=== PATIENT | male | born 1990 | race Caucasian/White ===

== ENCOUNTER 2017-01-04 08:00 | Inpatient (IN) | payer MEDICAID ==
[~2017-01-04] VITALS: Ht 167.6 cm; Wt 65.8 kg
--- NOTE | ~2017-01-04 | DS ---
Unit #: [id number] #: [id number] Patient: EDDIE ROTH [id number] [place] [address] [id number] MR#: [id number] NAME: EDDIE ROTH. ROOM: P204 Age: 26 Sex: M Admission Date: 01/04/2017 : 1990 Discharge Date: 01/05/2017 Attending Physician: Gibson Rome M.D. Primary Care Physician: Generic Doctor Not In System DISCHARGE SUMMARY REASON FOR ADMISSION The patient is a 26-year-old white male, admitted after he had presented to his mother's home intoxicated and claiming to be suicidal. HOSPITAL COURSE The patient was admitted to the [address] [place] [address] unit and upon arrival on the unit required p.r.nJasmyne Whitley given his state of agitation, thus he was not evaluated on the initial date of admission. On 01/05/2017, the patient was contrite over the events, which led to the hospitalization and stated that the alcohol was the cause of his statements of suicidality. 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 Further the patient stated that he had made arrangements to go to a psychiatric facility most likely "catch" in the next few days to initiate medication for his "personality disorder and bipolarism." He was not felt to meet criteria for involuntary hospitalization and was exhibiting no signs or symptoms of alcohol withdrawal. As per his request, discharge was ordered. FINAL DIAGNOSES Alcohol use disorder; substance-induced mood disorder. DISPOSITION ON DISCHARGE No psychotropic or other medications were ordered at the time of discharge. FOLLOWUP Followup will take place through the auspices of community mental health resources. PROGNOSIS The patient's prognosis is considered fair. Dictated by... Gibson Rome M.D. CB/aniya TD: 01/05/2017 16:04 JOB #: [id number] Unit #: [id number] #: [id number] Patient: EDDIE ROTH DISCHARGE SUMMARY Page 1 of 1 X Gibson Rome MD DISCHARGE SUMMARY
--- NOTE | ~2017-01-04 | PA ---
Unit #: [id number] #: [id number] Patient: EDDIE ROTH [id number] [facility] [address] [place] [address] [id number] MR#: [id number] NAME: EDDIE ROTH. ROOM: P204 Age: 26 Sex: M Admission Date: 01/04/2017 : 1990 Date of Assessment: 01/04/2017 Attending Physician: Gibson Rome M.D. Admitting Physician: Gibson Rome M.D. Primary Care Physician: Generic Doctor Not In System PSYCHIATRIC ASSESSMENT IDENTIFYING INFORMATION The patient is a 26-year-old white male admitted to the [address] [place] [address] Unit after he had presented to his this facility drunk and voicing suicidal ideation. CHIEF COMPLAINT None given. INFORMANT(S) Chart. Patient cannot be aroused for interview. HISTORY OF PRESENT ILLNESS The patient is a 26-year-old white male admitted after he was just brought to this facility by family members this morning. The patient had apparently shown up at his mother's house intoxicated, threatening suicide. The patient reports that this is related to relationship issues mainly as well as unemployment. The patient had become somewhat aggressive in the emergency room but was calm upon arrival on the unit. He has a history of treatment in the past on an outpatient basis and was sent to a boot camp as an adolescent. The patient has a history of polysubstance dependence including abuse of cocaine and opiates, but his most recent drug of choice has been alcohol. PAST PSYCHIATRIC HISTORY As above. PAST MEDICAL HISTORY The patient is on no current medications. MEDICATIONS None. ALLERGIES None. FAMILY HISTORY The patient had a sister who committed suicide. SOCIAL HISTORY The patient is currently in a relationship with a woman who is but has been unfaithful to him. He is drinking 15 to 16 beers a day and has a history of cocaine and opioid abuse as well as abuse of cannabis. MENTAL STATUS EXAMINATION Unit #: [id number] #: [id number] Patient: EDDIE ROTH Examination at this time reveals the patient to be a soundly sleeping white male appearing stated age. He does not arouse after multiple attempts to do so. ASSETS AND LIABILITIES The patient's assets: Supportive family. Liabilities: Ongoing substance use. DIAGNOSTIC IMPRESSION 1. Alcohol use disorder. 2. Cocaine use disorder. 3. Cannabis use disorder. 4. Opioid use disorder. 5. Dysthymic disorder. TREATMENT PLAN The patient remains hospitalized for safety and stabilization. We will watch for signs of alcohol withdrawal and suicide precautions are in place. A 72-hour hold has been initiated given the patient's demands to leave the hospital earlier today. ESTIMATED LENGTH OF STAY 3 to 5 days. The followup will take place through the auspices of community mental health and chemical dependence treatment resources. Dictated by... Gibson Rome M.D. THERESA/gurwinder TD: 01/04/2017 13:57 JOB #: [id number] PSYCHIATRIC ASSESSMENT Page 1 of 1 X Gibson Rome MD X PSYCHIATRIC ASSESSMENT
--- NOTE | ~2017-01-04 | HP ---
Unit #: [id number] #: [id number] Patient: ELMO ROTH [id number] [place] [address] [id number] MR#: [id number] NAME: ELMO ROTH. ROOM: P204 Age: 26 Sex: M Admission Date: 01/04/2017 : 1990 Attending Physician: Gibson Rome M.D. Admitting Physician: Gibson Rome M.D. Primary Care Physician: Generic Doctor Not In System HISTORY AND PHYSICAL HISTORY OF PRESENT ILLNESS Elmo is a 26 year old admitted to [address] [place] [address] because of his abuse of alcohol. PAST MEDICAL HISTORY 1. Long history of alcohol abuse. 2. History of illicit substance to include cocaine. PAST SURGICAL HISTORY Nothing reported. ALLERGIES No known drug allergies. SOCIAL HISTORY Smokes less than one pack per day. Drinks at least two beers on a daily basis and much more on weekends. He admits to using cocaine frequently. FAMILY HISTORY Medically noncontributory. REVIEW OF SYSTEMS CONSTITUTIONAL: No fever or chills. HEENT: Denies any sore throat, ear pain or runny nose. CARDIOVASCULAR: Denies chest pain, irregular heart rhythm or palpitations. CHEST: Denies shortness of breath or cough. No hemoptysis. GASTROINTESTINAL: Denies nausea, vomiting, diarrhea or chronic constipation. ENDOCRINE: Denies history of increased thirst or urination. No recent significant weight loss or gain. GENITOURINARY: Denies dysuria, frequency, or hematuria. SKIN: Denies any rashes. HEMATOLOGIC: Denies history of increased bleeding or bruising. MUSCULOSKELETAL: Denies any hot, swollen joints. No generalized muscle pain. NEUROLOGIC: Denies problems with vision or speech. No frequent, severe headaches. No numbness, tingling or weakness in any extremities. Denies loss of bladder or bowel control. CURRENT MEDICATIONS Detox protocol. PHYSICAL EXAMINATION Unit #: [id number] #: [id number] Patient: ELMO ROTH GENERAL: Alert, well-nourished, in no apparent distress. VITAL SIGNS: Blood pressure 140/82, heart rate 90, respirations 16, temperature 98.6. WEIGHT: 145. HEIGHT: 5 foot 6 inches. SKIN: Warm and dry without rash or lesion. HEENT: Normocephalic. TMs not viewed. Oral and nasal passages clear. Conjunctivae clear. Pupils equal, round and reactive to light and accommodation. Extraocular movements intact. NECK: Supple without lymphadenopathy or thyromegaly. HEART: Regular rate and rhythm without murmur. LUNGS: Clear. ABDOMEN: Soft, nontender. : Not done. EXTREMITIES: No evidence of cyanosis, clubbing or edema. Moves all extremities without focal deficit. NEUROLOGICAL: Grossly within normal limits. Cranial Nerves: II: Visual zamora are intact. III, IV AND : Extraocular movements are intact. Pupils are equal, round and reactive to light. V: Facial sensation is grossly normal. VII: Facial movements and expression are normal. VIII: Auditory acuity grossly intact. IX, X: Uvula is midline. Phonation is normal. XI: Patient shrugs shoulders and turns head normally. XII: Tongue protrudes in the midline. Sensory and Motor Function: Sensory and motor sensation is grossly normal. Motor: moves all extremities well. Coordination: Gait is normal. Deep Tendon Reflexes: Intact. IMPRESSION Psychiatric admission. RECOMMENDATIONS PSYCHIATRIC: Per psychiatrist. MEDICAL: I see no contraindications to participating in facility's activities. MEDICAL PROGNOSIS Good. MEDICAL CONDITION Stable. Dictated by... Katie Cesar PJasmyneAJasmyne-Marva. for Mauricio Meyers/shweta TD: 01/04/2017 22:34 JOB #: [id number] Unit #: [id number] #: [id number] Patient: ELMO ROTH HISTORY AND PHYSICAL Page 1 of 1 X Katie Cesar HISTORY AND PHYSICAL
[2017-01-05 09:28] LABS: BASOPHIL% 0.5 % (0-2.5); EOSINOPHIL# 0.2 X10e3 (0-0.7); EOSINOPHIL% 2.2 % (0.0-7.0); HEMATOCRIT 46.7 % (38.0-50.0); HEMOGLOBIN 16.4 gm/dL (13.0-16.0); LYMPHOCYTE# 2.4 X10e3 (1.0-3.5); LYMPHOCYTE% 32.4 % (17.0-45.0); MEAN CELL VOLUME 93.3 FL (83-96); MEAN CORPUSCULAR HEMOGLOBIN 32.7 PG (28-34); MEAN PLATELET VOLUME 7.8 FL (6.5-11.5); MONOCYTE# 0.4 X10e3 (0-1.0); MONOCYTE% 5.4 % (3.0-12.0); NEUTROPHIL# 4.5 X10e3 (1.5-7.1); NEUTROPHIL% 59.5 % (40-75); PLATELET COUNT 147 X10e3 (140-420); RED BLOOD COUNT 5.01 X10e (3.90-5.60); WHITE BLOOD COUNT 7.5 X10e3 (4.0-10.5)
[2017-01-05 09:31] LABS: URINE APPEARANCE CLEAR; URINE BILIRUBIN NEG (NEG); URINE BLOOD NEG (NEG); URINE COLOR DK YELLOW; URINE GLUCOSE NEG (NEG); URINE KETONE NEG (NEG); URINE LEUKOCYTE ESTERASE NEG (NEG); URINE NITRATE NEG (NEG); URINE PH 5.5 (5-8); URINE PROTEIN NEG (NEG); URINE SPECIFIC GRAVITY 1.015 (1.003-1.035); URINE UROBILINOGEN 0.2 MG/DL (NEG)
[2017-01-05 09:52] LABS: DIFF IND NO
[2017-01-05 10:04] LABS: ALBUMIN SERUM 4.1 g/dL (3.5-5.0); BILIRUBIN,TOTAL 0.7 mg/dL (0.2-2.0); BUN/CREATININE RATIO 8.33; CALCIUM SERUM 9.9 mg/dL (8.4-10.2); CREATININE SERUM 1.2 mg/dL (0.6-1.4); POTASSIUM 4.3 mmol/L (3.5-5.1); PROTEIN TOTAL SERUM 6.9 g/dL (6.0-8.3)
[2017-01-05 10:07] LABS: AMPHETAMINE NEG (NEG); BARBITURATES NEG (NEG); BENZODIAZEPINES POS (NEG); COCAINE POS (NEG); MARIJUANA NEG (NEG); OPIATES NEG (NEG); TRICYCLIC ANTIDEPRESSANTS NEG (NEG); U METHADONE NEG (NEG)
== END 2017-01-05 15:15 | disposition home or self-care (01) | DRG 897 ==
LOC: P2S 10:11
PROVIDERS: Specialist
DX: F10.24 Alcohol dependence with alcohol-induced mood disorder (principal); F11.10 Opioid abuse, uncomplicated; R45.851 Suicidal ideations; F14.10 Cocaine abuse, uncomplicated; F12.10 Cannabis abuse, uncomplicated; F34.1 Dysthymic disorder; F17.200 Nicotine dependence, unspecified, uncomplicated
CPT/HCPCS: 80053; 80307; 81003; 85025; 90688